=== PATIENT | female | born 1970 | race Caucasian/White ===

== ENCOUNTER 2024-07-14 16:05 | Emergency (ER) | payer BC ==
[~2024-07-14] VITALS: Ht 149.9 cm; Wt 56.7 kg
[2024-07-14 17:16] VITALS: BP_SYST 140; PULSE 113; RESP 18; TEMP 98.6; O2SAT 99
[2024-07-14] MEDS: MORPHINE 4 MG INJ. 4 MG/ML VIAL IM ONE (18:22)
[2024-07-14] MEDS: ONDANSETRON 4 MG ODT TAB PO ONE (18:23)
[2024-07-14] MEDS ORDERED: TRAM50TA2 PO (19:08)
[2024-07-14] MEDS ORDERED: NAPR-690 PO (19:08)
[2024-07-14 19:24] VITALS: BP_SYST 140; PULSE 113; RESP 18; TEMP 98.6; O2SAT 99
== END 2024-07-14 19:24 | disposition home or self-care (01) ==
LOC: SED 16:05
DX: S52.612A Displaced fracture of left ulna styloid process, initial encounter for closed fracture (principal); S52.502A Unspecified fracture of the lower end of left radius, initial encounter for closed fracture; W11.XXXA Fall on and from ladder, initial encounter; Y93.89 Activity, other specified; Y92.89 Other specified places as the place of occurrence of the external cause; Y99.8 Other external cause status
CPT/HCPCS: 99285; 70450; 73090; 73130; 29125; 96372; Q0162; J2270